=== PATIENT | female | born 1945 | race Caucasian/White ===

== ENCOUNTER 2019-02-20 03:53 | Inpatient (IN) | payer BC ==
[2019-02-20] VITALS (10 sets, daily range): BP systolic 114–150; BP diastolic 55–68; PULSE 60–68; RESP 18–19; Ht 160 cm; Wt 81.4 kg
[~2019-02-20] VITALS: Ht 160 cm; Wt 81.4 kg
--- NOTE | 2019-02-20 05:56 | HP ---
Date/Time of Note Date/Time of Note DATE: 02/20/19 TIME: 05:52 Assessment/Plan VTE Prophylaxis Pharmacological prophylaxis: heparin Lines/Catheters IV Catheter Type (from Nrs): Saline Lock Urinary Cath still in place: No Assessment/Plan Assessment/Plan 74-year-old female with a history of hypertension, diabetes, atrial fibrillation, gout, sleep apnea, arthritis, GERD who initially presented to an outside hospital complaining of generalized weakness, lack of energy and decreased appetite found with acute renal insufficiency and hyperkalemia. Patient transferred to [facility] for insurance with PLAN -Acute on chronic renal insufficiency, likely from decreased p.o. intake. We w ill hydrate. Will obtain renal ultrasound, urine electrolytes and place a nephrology consult -For lower extremity weakness, which is bilateral, will obtain a head CT to evaluate for CVA. PT eval -Home meds not entered in the system yet. Will review later Results 24hrs Laboratory Tests Test 02/20/19 05:45 Bedside Glucose 85 HPI/ROS Admit Date/Time Admit Date/Time Feb 20, 2019 at 04:07 Hx of Present Illness This is a 74-year-old female with a history of hypertension, diabetes, atrial fibrillation, gout, sleep apnea, arthritis, GERD who initially presented on outside hospital complaining of generalized weakness, lack of energy and decreased appetite. She reported bilateral lower extremity weakness which resulted in difficulty ambulating. This has been going on for the past 2 days. She did complain of having had a headache a couple of days ago. Denied chest pain, shortness of breath, nausea/vomiting, fever/chills. She was found to have a creatinine of 3 and potassium of 5.9. She said she was told by her doctor 6 months ago that she had a kidney disease. She was transferred to [facility] for insurance reasons. Her vitals a t the outside facility were stable. Hemoglobin was 9.3, from a 9.2 last month. Guaiac was negative at the outside facility PMH/Family/Social Past Medical History Medical History: other (see hpi) Coded Allergies: azithromycin (Verified Allergy, Unknown, STOMACH UPSET, VITTING, 02/19/19) Past Surgical History Past Surgical Hx: other (see hpi) Family History Significant Family History: no pertinent family hx Social History Alcohol Use: other Smoking Status: Never smoker Drug Use: none Exam Constitutional: other (no acute distress) Head: normocephalic Neck: supple Respiratory: normal air movement Cardiovascular: regular rate and rhythm Gastrointestinal: soft Medications Current Medications Sodium Chloride 1,000 ml @ 100 mls/hr Q10H IV ; Start 02/20/19 at 05:44; Status UNV IV Flush (NS 3 ml) 3 ml PER PROTOCOL IV ; Start 02/20/19 at 06:00; Status UNV Ondansetron HCl (Zofran Inj) 4 mg Q6H PRN IV NAUSEA/VOMITING; Start 02/20/19 at 06:00; Status UNV Acetaminophen (Tylenol Tab) 650 mg Q6H PRN PO .PAIN 1-3 OR TEMP; Start 02/20/19 at 06:00; Status UNV Heparin Sodium (Porcine) (Heparin (5000 Units/1ml)) 5,000 unit Q12 SC ; Start 02/20/19 at 09:00; Status UNV Albuterol/ Ipratropium (Duoneb) 3 ml Q2H RESP THERAPY PRN HHN SHORTNESS OF BREATH; Start 02/20/19 at 06:00; Status UNV Coded Allergies: No Known Allergy (Unverified , 02/20/19) Social History Smoking Status: Never smoker Exam/Review of Systems Vital Signs Vitals Vital Signs Date Temp Pulse Resp B/P (MAP) Pulse Ox O2 O2 Flow FiO2 Time Delivery Rate 02/20/19 97.6 63 18 136/63 98 Room Air 04:18 (87) KRISTAN WILSON MD Feb 20, 2019 05:56
[2019-02-20] MEDS ORDERED: ACETAMINOPHEN 325 MG TAB PO PRN (06:00)
[2019-02-20] MEDS ORDERED: ALBUTEROL/IPRATROPIUM (NEB) 3 ML AMP HHN PRN (06:00)
[2019-02-20] MEDS ORDERED: NACL 0.9% 3 ML SYG IV SCH (06:00)
[2019-02-20] MEDS ORDERED: ONDANSETRON 4 MG INJ IV PRN (06:00)
[2019-02-20] MEDS: SOD CHLORIDE 0.9% 1,000 ML IV SCH ×2 (06:27→15:44)
[2019-02-20] MEDS: HEPARIN 5,000 UNIT/1 ML VIAL SC SCH (10:02)
--- NOTE | 2019-02-20 12:31 | CONS ---
DATE OF ADMISSION: 02/20/2019 DATE OF CONSULTATION: 02/20/2019 NEPHROLOGY CONSULTATION REASON FOR CONSULTATION: Acute kidney injury. PHYSICIAN REQUESTING CONSULT: Dr. Wilson. HISTORY OF PRESENT ILLNESS: This is a 74-year-old female with a past medical history of hypertension , diabetes, AFib, gout, history of arthritis, history of GERD, possible history of CKD, who presents to after being transferred from an outside facility. The patient maurice parrish reported having lower extremity weakness, difficulty ambulating for the past 2 days. She was als o complaining of headaches. The patient on presentation to an outside hospital, had a creatinine of 3, potassium 5.9. The patient was given IV fluids and transferred to . Upon arrival, patient was noted to be stable. Denies any fevers, chills, nausea, vomiting. In terms of patient's renal history, the patient states that she might have CKD. She stated she was seen by a doctor 6 months ago and was told she had abnormal kidney function. The patient denies any hemoptysis, hematemesis, hematochezia. PAST MEDICAL HISTORY: History of hypertension, diabetes, AFib, gout, sleep apnea, arthritis, GERD, h istory of possible CKD. PAST SURGICAL HISTORY: Reviewed. ALLERGIES: REVIEWED. SOCIAL HISTORY: Does not drink, smoke or do drugs. MEDICATIONS: The patient's medications have been reviewed. REVIEW OF SYSTEMS: A 14-point review of systems conducted. Pertinent positives stated in HPI, other hernadez negative. PHYSICAL EXAMINATION: VITAL SIGNS: Blood pressure is 114/55, respiration 18, pulse 63, temperature 97.8. HEENT: Head is normocephalic. NECK: Supple. HEART: Regular rate. LUNGS: Show diminished breath sounds at the base. ABDOMEN: Soft, nontender to palpation. No rebound or guarding. EXTREMITIES: Negative for clubbing, cyanosis, no edema. DERMATOLOGIC: No rashes. MUSCULOSKELETAL: No joint effusion. NEUROLOGIC: No focal deficits. LABORATORY DATA: Reviewed. The patient's BUN is 55, creatinine 2.37, potassium 4.9. IMAGING STUDIES: Reviewed. ASSESSMENT AND PLAN: This is a 74-year-old female who presents with: 1. Nonoliguric acute kidney injury on top of possible chronic kidney disease with unknown baseline c reatinine. Etiology of acute kidney injury is unclear, possibly hemodynamic, possible tubular injury . Plan is to do a full evaluation. We will check UA with microanalysis, check urine electrolytes, c alculate FENa. Will quantify patient's proteinuria. Will check a renal ultrasound to rule out obstr uction. Will continue IV hydration. Otherwise, continue supportive care, renally dose all meds, sepideh id nephrotoxins. 2. Hyperkalemia, likely due to acute kidney injury. The patient's potassium levels have improved. Continue IV fluids. 3. History of chronic kidney disease with unknown baseline creatinine. Underlying etiology of CKD u nclear, possibly due to hypertension, age-related nephron loss. Plan is to continue treatment of acu te kidney injury as stated above. Otherwise, continue disease factor modification. 4. Anemia. Monitor hemoglobin and hematocrit levels. Will check an iron panel. 5. Mineral bone disorder. Monitor calcium and phosphorus levels. 6. History of diabetes. Continue Accu-Cheks and insulin sliding scale. 7. Hypertension. Continue current blood pressure regimen. 8. History of atrial fibrillation. Continue medical management. 9. History of gout. 10. History of sleep apnea. Thank you, Dr. Wilson, for this interesting consult. It will be a pleasure to follow the patient with you throughout the hospital course. Dictated By: NIAT EUCEDA DO NR/NTS Conf#: [id number] DID#: [id number] CC: KRISTAN WILSON MD;*EndCC*
--- NOTE | 2019-02-20 12:49 | PN ---
Date/Time of Note Date/Time of Note DATE: 02/20/19 TIME: 12:32 Assessment/Plan VTE Prophylaxis Risk score (from Ns)>0 risk: 6 SCD applied (from Ns): Yes Pharmacological prophylaxis: heparin Lines/Catheters IV C[facility]from [facility] Saline Lock Urinary Cath still in place: No Assessment/Plan Assessment/Plan 1. Likely acute on chronic renal failure, IVF 2. Hyperkalemia due to ARF, corrected 3. Dehydration due to poor intake, IVF 4. HTN, clonidine prn 5. Paroxysmal atrial fibrillation, sinus now, stop xarelto due to renal failure, will put her on eliquis 6. DVT prophylaxis: heparin Result Diagram: 02/20/19 0659 02/20/19 0659 Results 24hrs Laboratory Tests Test 02/20/19 05:45 02/20/19 06:59 Bedside Glucose 85 White Blood Count 6.9 Red Blood Count 2.77 L Hemoglobin 8.2 L Hematocrit 25.7 L Mean Corpuscular Volume 92.8 Mean Corpuscular Hemoglobin 29.6 Mean Corpuscular Hemoglobin Concent 31.9 L Red Cell Distribution Width 15.6 H Platelet Count 268 Mean Platelet Volume 9.9 Immature Granulocytes % 0.400 Neutrophils % 56.1 Lymphocytes % 26.6 Monocytes % 7.2 Eosinophils % 9.1 H Basophils % 0.6 Nucleated Red Blood Cells % 0.0 Immature Granulocytes # 0.030 Neutrophils # 3.9 Lymphocytes # 1.8 Monocytes # 0.5 Eosinophils # 0.6 H Basophils # 0.0 Nucleated Red Blood Cells # 0.0 Sodium Level 140 Potassium Level 4.9 Chloride Level 113 H Carbon Dioxide Level 21 Anion Gap 6 Blood Urea Nitrogen 55 H Creatinine 2.37 H Est Glomerular Filtrat Rate mL/min Glucose Level 75 Hemoglobin A1c 5.3 Calcium Level 8.4 Magnesium Level 2.0 Total Bilirubin 0.2 Direct Bilirubin 0.00 Indirect Bilirubin 0.2 Aspartate Amino Transf (AST/SGOT) 19 Alanine Aminotransferase (ALT/SGPT) 17 Alkaline Phosphatase 53 Total Protein 6.1 Albumin 3.2 L Globulin 2.90 Albumin/Globulin Ratio 1.10 Triglycerides Level 102 Cholesterol Level 123 LDL Cholesterol, Calculated 54 HDL Cholesterol 49 Cholesterol/HDL Ratio 2.5 Subjective 24 Hr Interval Summary Free Text/Dictation better appetite and feels stronger Exam/Review of Systems Exam Vitals Vital Signs Date Temp Pulse Resp B/P (MAP) Pulse Ox O2 O2 Flow FiO2 Time Delivery Rate 02/20/19 97.5 61 18 150/64 100 11:40 (92) 02/20/19 Room Air 04:18 Constitutional: oriented, well developed Psych: no complaints, nl mood/affect Head: normocephalic, atraumatic Eyes: nl conjunctiva, EOMI, nl lids, PERRL ENMT: nl external ears & nose, nl lips & teeth, nl nasal mucosa & septum Neck: supple, non-tender Respiratory: clear to auscultation, normal air movement; No congested cough, No crackles/rales, No diminished breath sounds, No intercostal retraction, No labored breathing, No respirations, No tactile fremitus, No wheezing, No other Cardiovascular: regular rate and rhythm, nl pulses; No bruits, No diastolic murmur, No edema, No gallop, No irregular rhythm, No jugular venous distention (JVD), No murmurs/extra sounds, No rub, No systolic murmur, No S3, No S4, No other Gastrointestinal: soft, nl liver, spleen, non-tender Musculoskeletal: nl extremities to inspection Extremities: normal pulses; No calf tenderness, No cyanosis, No clubbing, No edema, No pitting pedal edema, No palpable cord, No tenderness, No other Neurological: WAITER/WAITRESS SECOND CLASS II-XII intact, nl mental status, nl speech, nl strength Results Results 24hrs Laboratory Tests Test 02/20/19 05:45 02/20/19 06:59 Bedside Glucose 85 White Blood Count 6.9 Red Blood Count 2.77 L Hemoglobin 8.2 L Hematocrit 25.7 L Mean Corpuscular Volume 92.8 Mean Corpuscular Hemoglobin 29.6 Mean Corpuscular Hemoglobin Concent 31.9 L Red Cell Distribution Width 15.6 H Platelet Count 268 Mean Platelet Volume 9.9 Immature Granulocytes % 0.400 Neutrophils % 56.1 Lymphocytes % 26.6 Monocytes % 7.2 Eosinophils % 9.1 H Basophils % 0.6 Nucleated Red Blood Cells % 0.0 Immature Granulocytes # 0.030 Neutrophils # 3.9 Lymphocytes # 1.8 Monocytes # 0.5 Eosinophils # 0.6 H Basophils # 0.0 Nucleated Red Blood Cells # 0.0 Sodium Level 140 Potassium Level 4.9 Chloride Level 113 H Carbon Dioxide Level 21 Anion Gap 6 Blood Urea Nitrogen 55 H Creatinine 2.37 H Est Glomerular Filtrat Rate mL/min Glucose Level 75 Hemoglobin A1c 5.3 Calcium Level 8.4 Magnesium Level 2.0 Total Bilirubin 0.2 Direct Bilirubin 0.00 Indirect Bilirubin 0.2 Aspartate Amino Transf (AST/SGOT) 19 Alanine Aminotransferase (ALT/SGPT) 17 Alkaline Phosphatase 53 Total Protein 6.1 Albumin 3.2 L Globulin 2.90 Albumin/Globulin Ratio 1.10 Triglycerides Level 102 Cholesterol Level 123 LDL Cholesterol, Calculated 54 HDL Cholesterol 49 Cholesterol/HDL Ratio 2.5 Medications Medication Current Medications Sodium Chloride 1,000 ml @ 100 mls/hr Q10H IV Last administered on 02/20/19at 06:27; Admin Dose 100 MLS/HR; Start 02/20/19 at 05:44 IV Flush (NS 3 ml) 3 ml PER PROTOCOL IV ; Start 02/20/19 at 06:00 Ondansetron HCl (Zofran Inj) 4 mg Q6H PRN IV NAUSEA/VOMITING; Start 02/20/19 at 06:00 Acetaminophen (Tylenol Tab) 650 mg Q6H PRN PO .PAIN 1-3 OR TEMP; Start 02/20/19 at 06:00 Heparin Sodium (Porcine) (Heparin (5000 Units/1ml)) 5,000 unit Q12 SC Last administered on 02/20/19at 10:02; Admin Dose 5,000 UNIT; Start 02/20/19 at 09:00 Albuterol/ Ipratropium (Duoneb) 3 ml Q2H RESP THERAPY PRN HHN SHORTNESS OF BREATH; Start 02/20/19 at 06:00 IVONNE RAY MD Feb 20, 2019 12:44
[2019-02-20] MEDS ORDERED: ALEN35TA12 PO (16:38)
[2019-02-20] MEDS ORDERED: AMIO200T4 PO (16:38)
[2019-02-20] MEDS ORDERED: DILT240C98 PO (16:38)
[2019-02-20] MEDS ORDERED: [UNRECOGNIZED DRUG - CODE] PO (16:41)
[2019-02-20] MEDS ORDERED: RANI150T5 PO (16:43)
[2019-02-20] MEDS ORDERED: SULF20OR7 PO (16:45)
[2019-02-20] MEDS ORDERED: RANO500T2 PO (16:45)
[2019-02-20] MEDS ORDERED: CARV6.2579 PO (16:46)
[2019-02-20] MEDS ORDERED: PRAV40TA76 PO ×2 (16:47→17:04)
[2019-02-20] MEDS ORDERED: BENA40TA56 PO (16:47)
[2019-02-20] MEDS ORDERED: GABA300C16 PO (17:02)
[2019-02-20] MEDS ORDERED: ISOS120T15 PO (17:04)
[2019-02-20] MEDS ORDERED: RIVA15TA PO (17:09)
[2019-02-21] VITALS (10 sets, daily range): BP systolic 116–149; BP diastolic 56–73; PULSE 62–71; RESP 18–19
[2019-02-21] MEDS ORDERED: LATA2.5D19 BOTH EYES
[2019-02-21] MEDS: GABAPENTIN 300 MG CAP PO SCH ×3 (01:00→21:09)
[2019-02-21] MEDS: RANITIDINE 150 MG TAB PO SCH ×3 (01:01→21:08)
[2019-02-21] MEDS: LATANOPROST 0.005% 2.5 ML OPH BOTH EYES SCH ×2 (01:01→21:08)
[2019-02-21] MEDS: RANOLAZINE (SR) 500 MG TAB PO SCH ×3 (01:01→21:08)
[2019-02-21] MEDS: SOD CHLORIDE 0.9% 1,000 ML IV SCH ×3 (01:10→22:44)
[2019-02-21] MEDS: HEPARIN 5,000 UNIT/1 ML VIAL SC SCH ×3 (01:10→21:23)
[2019-02-21] MEDS: DILTIAZEM (CD) 240 MG CAP PO SCH (09:29)
[2019-02-21] MEDS: ISOSORBIDE MONONITRATE(SR)60 MG TAB PO SCH (09:29)
[2019-02-21] MEDS: AMIODARONE 200 MG TAB PO SCH (09:30)
--- NOTE | 2019-02-21 09:33 | PN ---
DATE: 02/21/2019 SUBJECTIVE: The patient is stable, no events overnight. No fevers, chills, nausea, or vomiting. OBJECTIVE: VITAL SIGNS: Blood pressure is 143/63, pulse 71, respirations 19, temperature 97.6. HEENT: Head is normocephalic. NECK: Supple. HEART: Regular rate. LUNGS: Show diminished breath sounds at the base. ABDOMEN: Soft, nontender to palpation without rebound or guarding. EXTREMITIES: Negative for clubbing, cyanosis, no edema. DERMATOLOGIC: No rashes. MUSCULOSKELETAL: No joint effusion. NEUROLOGIC: No change in exam. MEDICATIONS: The patient's medications have been reviewed. LABORATORY DATA: Reviewed. ASSESSMENT AND PLAN: 1. Nonoliguric acute kidney injury on top of chronic kidney disease with unknown baseline creatinine . Etiology of acute kidney injury is secondary to hemodynamics, possible volume depletion. The justice ent's urinalysis was reviewed, no active sediment. Renal ultrasound was reviewed, unremarkable. The patient's renal function has been improving with IV fluids. Plan is to deescalate IV fluids. We wi ll continue current treatment plan, supportive care, renally dose all medicines. 2. Hyperkalemia, resolved. Continue to monitor. 3. Chronic kidney disease with unknown baseline creatinine. The patient is currently in acute kidne y injury as stated above. Continue current treatment plan. Continue disease factor modification. 4. Anemia. Monitor hemoglobin and hematocrit levels. 5. Mineral bone disorder. Monitor calcium and phosphorus levels. 6. Diabetes. Continue current insulin regimen. 7. Hypertension. Continue current blood pressure regimen. 8. History of atrial fibrillation. Continue medical management. Dictated By: NITA EUCEDA DO NR/NTS Conf#: [id number] DID#: [id number] CC: KRISTAN WILSON MD; IVONNE RAY MD;*EndCC*
--- NOTE | 2019-02-21 14:29 | PN ---
Date/Time of Note Date/Time of Note DATE: 02/21/19 TIME: 14:26 Assessment/Plan VTE Prophylaxis Risk score (from Ns)>0 risk: 5 SCD applied (from Ns): Yes Pharmacological prophylaxis: heparin Lines/Catheters IV Catheter Type (from Nrs): Peripheral IV Urinary Cath still in place: Yes Reason Cath still needed: other (indicate) Assessment/Plan Assessment/Plan 1. Acute on chronic renal failure, improving with IVF 2. Hyperkalemia due to ARF, corrected 3. Dehydration due to poor intake, IVF 4. HTN, clonidine prn 5. Paroxysmal atrial fibrillation, sinus now, stop xarelto due to renal failure, will put her on eliquis 6. DVT prophylaxis: heparin 7. Discharge home with PT tomorrow if stable Result Diagram: 02/21/1953202/21/19532 Results 24hrs Laboratory Tests Test 02/21/19 05:33 White Blood Count 7.0 Red Blood Count 3.09 L Hemoglobin 9.0 L Hematocrit 29.2 L Mean Corpuscular Volume 94.5 Mean Corpuscular Hemoglobin 29.1 Mean Corpuscular Hemoglobin Concent 30.8 L Red Cell Distribution Width 15.6 H Platelet Count 256 Mean Platelet Volume 9.3 Immature Granulocytes % 0.300 Neutrophils % 52.1 Lymphocytes % 29.9 Monocytes % 6.4 Eosinophils % 10.6 H Basophils % 0.7 Nucleated Red Blood Cells % 0.0 Immature Granulocytes # 0.020 Neutrophils # 3.6 Lymphocytes # 2.1 Monocytes # 0.5 Eosinophils # 0.7 H Basophils # 0.1 Nucleated Red Blood Cells # 0.0 Sodium Level 141 Potassium Level 5.0 Chloride Level 114 H Carbon Dioxide Level 22 Anion Gap 5 Blood Urea Nitrogen 31 #H Creatinine 1.47 H Est Glomerular Filtrat Rate mL/min Glucose Level 70 Calcium Level 8.5 Phosphorus Level 3.2 Magnesium Level 1.8 Thyroid Stimulating Hormone (TSH) 2.440 Subjective 24 Hr Interval Summary Free Text/Dictation stronger, eating more Exam/Review of Systems Exam Vitals Vital Signs Date Temp Pulse Resp B/P (MAP) Pulse Ox O2 O2 Flow FiO2 Time Delivery Rate 02/21/19 64 12:51 02/21/19 97.4 19 133/64 96 10:57 (87) 02/20/19 Room Air 04:18 Intake and Output 02/20/19 02/20/19 02/21/19 1515:00 23:00 07:00 IntakeIntake Total 1200 ml 2100 ml OutputOutput Total 600 ml 800 ml 3100 ml BalanceBalance -600 ml 400 ml -1000 ml Constitutional: alert, oriented, well developed Head: normocephalic, atraumatic Eyes: nl conjunctiva, EOMI, nl lids, PERRL ENMT: nl external ears & nose, nl lips & teeth, nl nasal mucosa & septum Neck: supple, non-tender Respiratory: clear to auscultation, normal air movement; No congested cough, No crackles/rales, No diminished breath sounds, No intercostal retraction, No labored breathing, No respirations, No tactile fremitus, No wheezing, No other Cardiovascular: regular rate and rhythm, nl pulses; No bruits, No diastolic murmur, No edema, No gallop, No irregular rhythm, No jugular venous distention (JVD), No murmurs/extra sounds, No rub, No systolic murmur, No S3, No S4, No other Gastrointestinal: soft, nl liver, spleen, non-tender Musculoskeletal: nl extremities to inspection Extremities: normal pulses; No calf tenderness, No cyanosis, No clubbing, No edema, No pitting pedal edema, No palpable cord, No tenderness, No other Neurological: ASSOCIATE PROFESSOR OF [employer]IMINAL JUSTICE II-XII intact, nl mental status, nl speech, nl strength Results Results 24hrs Laboratory Tests Test 02/21/19 05:33 White Blood Count 7.0 Red Blood Count 3.09 L Hemoglobin 9.0 L Hematocrit 29.2 L Mean Corpuscular Volume 94.5 Mean Corpuscular Hemoglobin 29.1 Mean Corpuscular Hemoglobin Concent 30.8 L Red Cell Distribution Width 15.6 H Platelet Count 256 Mean Platelet Volume 9.3 Immature Granulocytes % 0.300 Neutrophils % 52.1 Lymphocytes % 29.9 Monocytes % 6.4 Eosinophils % 10.6 H Basophils % 0.7 Nucleated Red Blood Cells % 0.0 Immature Granulocytes # 0.020 Neutrophils # 3.6 Lymphocytes # 2.1 Monocytes # 0.5 Eosinophils # 0.7 H Basophils # 0.1 Nucleated Red Blood Cells # 0.0 Sodium Level 141 Potassium Level 5.0 Chloride Level 114 H Carbon Dioxide Level 22 Anion Gap 5 Blood Urea Nitrogen 31 #H Creatinine 1.47 H Est Glomerular Filtrat Rate mL/min Glucose Level 70 Calcium Level 8.5 Phosphorus Level 3.2 Magnesium Level 1.8 Thyroid Stimulating Hormone (TSH) 2.440 Medications Medication Current Medications Sodium Chloride 1,000 ml @ 50 mls/hr Q20H IV Last administered on 02/21/19 01:10; Admin Dose 100 MLS/HR; Start 02/20/19 at 05:44 IV Flush (NS 3 ml) 3 ml PER PROTOCOL IV ; Start 02/20/19 at 06:00 Ondansetron HCl (Zofran Inj) 4 mg Q6H PRN IV NAUSEA/VOMITING; Start 02/20/19 at 06:00 Acetaminophen (Tylenol Tab) 650 mg Q6H PRN PO .PAIN 1-3 OR TEMP; Start 02/20/19 at 06:00 Heparin Sodium (Porcine) (Heparin (5000 Units/1ml)) 5,000 unit Q12 SC Last administered on 02/21/19 09:31; Admin Dose 5,000 UNIT; Start 02/20/19 at 09:00 Albuterol/ Ipratropium (Duoneb) 3 ml Q2H RESP THERAPY PRN HHN SHORTNESS OF BREATH; Start 02/20/19 at 06:00 Amiodarone HCl (Cordarone) 200 mg DAILY PO Last administered on 02/21/19 09:30; Admin Dose 200 MG; Start 02/21/19 at 09:00 Carvedilol (Coreg) 6.25 mg BID PO Last administered on 02/21/19 09:30; Admin Dose 6.25 MG; Start 02/20/19 at 23:30 Diltiazem HCl (Cardizem Cd) 240 mg DAILY PO Last administered on 02/21/19 09:29; Admin Dose 240 MG; Start 02/21/19 at 09:00 Gabapentin (Neurontin) 300 mg BID PO Last administered on 02/21/19 09:29; Admin Dose 300 MG; Start 02/20/19 at 23:30 Isosorbide Mononitrate (Imdur) 120 mg DAILY PO Last administered on 02/21/19 09:29; Admin Dose 120 MG; Start 02/21/19 at 09:00 Ranitidine HCl (Zantac) 150 mg Q12 PO Last administered on 4/10/19at 09:29; Admin Dose 150 MG; Start 02/20/19 at 23:30 Ranolazine (Ranexa) 500 mg Q12 PO Last administered on 02/21/19at 09:40; Admin Dose 500 MG; Start 02/20/19 at 23:30 Atorvastatin Calcium (Lipitor) 20 mg DAILY@21 PO ; Start 02/21/19 at 21:00 Latanoprost (Xalatan) 1 drop QHS BOTH EYES Last administered on 02/21/19at 01: 01; Admin Dose 1 DROP; Start 02/21/19 at 00:30 IVONNE RAY MD Feb 21, 2019 14:29
[2019-02-21] MEDS ORDERED: ATORVASTATIN 20 MG TAB PO SCH (21:00)
[2019-02-22] VITALS (9 sets, daily range): BP systolic 128–158; BP diastolic 56–72; PULSE 60–73; RESP 18
[2019-02-22] MEDS: DILTIAZEM (CD) 240 MG CAP PO SCH (08:54)
[2019-02-22] MEDS: RANITIDINE 150 MG TAB PO SCH (08:54)
[2019-02-22] MEDS: RANOLAZINE (SR) 500 MG TAB PO SCH (08:54)
[2019-02-22] MEDS: AMIODARONE 200 MG TAB PO SCH (08:54)
[2019-02-22] MEDS: ISOSORBIDE MONONITRATE(SR)60 MG TAB PO SCH (08:54)
[2019-02-22] MEDS: GABAPENTIN 300 MG CAP PO SCH (08:55)
[2019-02-22] MEDS: HEPARIN 5,000 UNIT/1 ML VIAL SC SCH (09:00)
--- NOTE | 2019-02-22 09:16 | PN ---
DATE: 02/22/2019 SUBJECTIVE: The patient is stable. No events overnight. No fevers, chills, nausea, vomiting. OBJECTIVE: VITAL SIGNS: Blood pressure is 158/72, pulse 60, respiration 18, temperature 97.5. HEENT: Head is normocephalic. NECK: Supple. HEART: Regular rate. LUNGS: Show diminished breath sounds at the base. ABDOMEN: Soft, nontender to palpation. No rebound or guarding. EXTREMITIES: Negative for clubbing, cyanosis, no edema. DERMATOLOGIC: No rashes. MUSCULOSKELETAL: No joint effusions. NEUROLOGIC: No change in exam. MEDICATIONS: The patient's medications have been reviewed. LABORATORY DATA: Has been reviewed. ASSESSMENT AND PLAN: 1. Nonoliguric acute kidney injury on top of chronic kidney disease with unknown baseline creatinine . Etiology of MAHAD is secondary to hemodynamics, volume depletion. Renal function has been improving . The patient is currently euvolemic. The plan is to discontinue IV fluids. We will continue to mo nitor renal function closely. 2. Hyperkalemia, resolved. 3. Chronic kidney disease with unknown baseline creatinine. The patient is currently in acute kidne y injury as stated above. Continue current treatment plan. Continue disease factor modification. 4. Anemia. Monitor hemoglobin and hematocrit levels. 5. Mineral bone disorder, monitor calcium and phosphorus levels. 6. Diabetes. Continue current insulin regimen. 7. Hypertension. Continue current blood pressure regimen. 8. History of atrial fibrillation. Continue medical management. Dictated By: NITA EUCEAD DO NR/NTS Conf#: [id number] DID#: [id number] CC: IVONNE RAY MD; KRISTAN WILSON MD;*EndCC*
[2019-02-22] MEDS ORDERED: APIX2.5T PO (13:11)
--- NOTE | 2019-02-22 13:23 | DS ---
Date/Time of Note Date/Time of Note DATE: 02/22/19 TIME: 13:15 Discharge Summary Admission/Discharge Info Admit Date/Time Feb 20, 2019 at 04:07 Discharge Date/Time Discharge Diagnosis 1. Acute on chronic renal failure, improving, follow up with PCP 2. Hyperkalemia due to ARF, corrected 3. Dehydration due to poor intake, resolved 4. HTN, controlled 5. Paroxysmal atrial fibrillation, sinus now, change xarelto to eliquis Patient Condition: Stable Hospital Course This is a 74-year-old female with a history of hypertension, diabetes, atrial fibrillation, gout, sleep apnea, arthritis, GERD who initially presented on outside hospital complaining of generalized weakness, lack of energy and decreased appetite. She reported bilateral lower extremity weakness which resulted in difficulty ambulating. This has been going on for the past 2 days. She did complain of having had a headache a couple of days ago. Denied chest pain, shortness of breath, nausea/vomiting, fever/chills. She was found to have a creatinine of 3 and potassium of 5.9. She said she was told by her doctor 6 months ago that she had a kidney disease. She was transferred to [facility] for insurance reasons. Her vitals at the outside facility were stable. Hemoglobin was 9.3, from a 9.2 last month. Guaiac was negative at the outside facility Patient came in with severe dehydration due to poor intake, with acute renal failure, BUN/Cr 55/3.7, hyperkalemia. Patient is given IVF rehydration and patient has been eating well after the admission, BUN/Cr 25.1,25 on 02/22/2019, hyperkalemia resolved. Patient has paroxysmal atrial fibrillation that she is on coreg/cardizem for rate control, she is also on amiodarone and xarelto. She has been on sinus rhythm after the admission. Xarelto is on hold due to renal failure. I will discharge her with eliquis, dosage should be adjusted when renal function normalized. Home Meds Active Scripts Apixaban* (Eliquis*) 2.5 Mg Tablet, 2.5 MG PO BID for 30 Days, TAB Prov:IVONNE RAY MD 02/22/19 Reported Medications Latanoprost (Xalatan) 2.5 Ml Drops, 1 DROP BOTH EYES QHS, #1 BOTTLE 02/21/19 Isosorbide Mononitrate* (Isosorbide Mononitrate*) 120 Mg Tab.sr.24h, 120 MG PO DAILY, TAB.SA 02/20/19 Pravastatin Sodium* (Pravastatin Sodium*) 40 Mg Tablet, 40 MG PO HS, TAB 02/20/19 Gabapentin* (Gabapentin*) 300 Mg Capsule, 300 MG PO BID, #60 CAP 02/20/19 Carvedilol* (Carvedilol*) 6.25 Mg Tablet, 6.25 MG PO BID, #60 TAB 02/20/19 Ranolazine* (Ranexa*) 500 Mg Tab.sr.12h, 500 MG PO Q12, TAB 02/20/19 Ranitidine Hcl* (Ranitidine Hcl*) 150 Mg Tablet, 150 MG PO Q12, #60 TAB 02/20/19 Acetaminophen (Tactinal) 500 Mg Tablet, 500 MG PO, TAB 02/20/19 Alendronate Sodium* (Alendronate Sodium*) 35 Mg Tablet, 35 MG PO Q7D, #4 TAB 02/20/19 Diltiazem Hcl* (Diltiazem XT) 240 Mg Capsule.er, 240 MG PO DAILY, #30 CAP 02/20/19 Amiodarone Hcl* (Amiodarone Hcl*) 200 Mg Tablet, 200 MG PO DAILY, #30 TAB 02/20/19 Discontinued Reported Medications Rivaroxaban* (Xarelto*) 15 Mg Tablet, 15 MG PO WITH BREAKFAST DINNE, TAB 02/20/19 Pravastatin Sodium* (Pravastatin Sodium*) 40 Mg Tablet, 40 MG PO HS, TAB 02/20/19 Benazepril Hcl* (Benazepril Hcl*) 40 Mg Tablet, 40 MG PO DAILY, #30 TAB 02/20/19 Sulfamethoxazole/Trimethoprim (Sulfatrim 800-160 mg/20 ml Ayana) 800-160 mg/20 mL Susp, 10 ML PO BID, #1 BOTTLE 02/20/19 Follow-up Plan PCP and cardiology in one week Primary Care Provider Jag Ta Pending Labs Laboratory Tests Test 02/22/19 05:48 White Blood Count 6.6 10^3/ul (4.8-10.8) Red Blood Count 3.21 10^6/ul (4.20-5.40) Hemoglobin 9.3 g/dl (12.0-16.0) Hematocrit 29.6 % (37.0-47.0) Mean Corpuscular Volume 92.2 fl (82.0-101.0) Mean Corpuscular Hemoglobin 29.0 pg (29.0-33.0) Mean Corpuscular Hemoglobin Concent 31.4 g/dl (32.0-37.0) Red Cell Distribution Width 15.6 % (11.5-14.5) Platelet Count 273 10^3/UL (140-415) Mean Platelet Volume 9.6 fl (7.4-10.4) Immature Granulocytes % 0.300 % (0.001-0.429) Neutrophils % 59.8 % (39.0-77.0) Lymphocytes % 21.9 % (15.0-51.0) Monocytes % 7.5 % (0.0-11.0) Eosinophils % 9.7 % (0.0-7.0) Basophils % 0.8 % (0.0-2.0) Nucleated Red Blood Cells % 0.0 /100WBC (0.0-0.0) Immature Granulocytes # 0.020 10^3/ul (0.0-0.031) Neutrophils # 3.9 10^3/ul (1.6-7.5) Lymphocytes # 1.4 10^3/ul (0.8-2.9) Monocytes # 0.5 10^3/ul (0.3-0.9) Eosinophils # 0.6 10^3/ul (0.0-0.5) Basophils # 0.1 10^3/ul (0.0-0.1) Nucleated Red Blood Cells # 0.0 10^3/ul (0.0-0.0) Sodium Level 141 mmol/L (135-144) Potassium Level 4.4 mmol/L (3.5-5.1) Chloride Level 109 mmol/L (97-110) Carbon Dioxide Level 22 mmol/L (21-31) Anion Gap 10 (5-13) Blood Urea Nitrogen 26 mg/dl (7-20) Creatinine 1.25 mg/dl (0.44-1.00) Est Glomerular Filtrat Rate mL/min mL/min (>60) Glucose Level 79 mg/dl (70-220) Calcium Level 8.4 mg/dl (8.4-10.2) Phosphorus Level 3.2 mg/dl (2.5-4.9) Magnesium Level 1.7 mg/dl (1.7-2.5) IVONNE RAY MD Feb 22, 2019 13:23
== END 2019-02-22 16:20 | disposition home or self-care (01) | DRG 684 ==
LOC: 6WM 04:07
PROVIDERS: ADMIT Internal Medicine; ATTEND Internal Medicine
DX: N17.9 Acute kidney failure, unspecified (principal); E86.0 Dehydration; I48.0 Paroxysmal atrial fibrillation; D64.9 Anemia, unspecified; M10.9 Gout, unspecified; G47.30 Sleep apnea, unspecified; K21.9 Gastro-esophageal reflux disease without esophagitis; N18.9 Chronic kidney disease, unspecified; E11.22 Type 2 diabetes mellitus with diabetic chronic kidney disease; I12.9 Hypertensive chronic kidney disease with stage 1 through stage 4 chronic kidney disease, or unspecified chronic kidney disease
CPT/HCPCS: 70450; 76775; 80048; 80053; 80061; 81003; 82043; 82436; 82962; 83036; 83735; 84100; 84133; 84155; 84300; 84443; 85025; 87081; 97110; 97116; 97162; 97165; 97530; J1644; J7030